=== PATIENT | female | born 1965 | race Caucasian/White ===

== ENCOUNTER 2017-01-17 15:15 | Emergency (ER) | payer OTHER ==
[~2017-01-17] VITALS: Ht 167.6 cm; Wt 67.0 kg
[2017-01-17] MEDS ORDERED: ONDANSETRON 2MG/ML, 2ML IVPush ONE ×2 (16:00→18:00)
[2017-01-17] MEDS ORDERED: SODIUM CHLORIDE FLUSH 10ML SYR IVF ONE (16:00)
[2017-01-17] MEDS ORDERED: SODIUM CHLORIDE 0.9% 1,000ML IV ONE (16:00)
[2017-01-17] MEDS ORDERED: KETOROLAC 30 MG/1 ML IVPush ONE (16:00)
[2017-01-17] MEDS ORDERED: MORPHINE SULFATE 4 MG/ML, 1ML IVPush PRN (16:00)
[2017-01-17] MEDS ORDERED: ONDANSETRON 2MG/ML, 2ML ONE ×2 (16:18→17:49)
[2017-01-17] MEDS ORDERED: MORPHINE SULFATE 4 MG/ML, 1ML ONE (16:18)
[2017-01-17] MEDS ORDERED: KETOROLAC 30 MG/1 ML ONE (16:18)
[2017-01-17] MEDS ORDERED: HYDROmorphone 2 MG/ML, 1ML ONE (16:34)
[2017-01-17 16:47] LABS: BLOOD UREA NITROGEN 15 mg/dL (7-18)
[2017-01-17] MEDS ORDERED: HYDROmorphone 1 MG/ML, 1ML IVPush ONE (17:00)
[2017-01-17] MEDS ORDERED: PROCHLORPERAZINE 5 MG/ML, 2ML IVPush ONE (18:30)
[2017-01-17] MEDS ORDERED: PROCHLORPERAZINE 5 MG/ML, 2ML ONE (18:36)
[2017-01-17 20:04] VITALS: BP 87/54
== END 2017-01-17 20:23 | disposition home or self-care (01) ==
LOC: ED 20:01
DX: R10.9 Unspecified abdominal pain (principal)
CPT/HCPCS: 36415; 74176; 80048; 81001; 82040; 85025; 87086; 96361; 96374; 96375; 96376; 99285; J0780; J1170; J1885; J2405; J7030

== ENCOUNTER → 2017-09-18 | Outpatient (CLI) | payer OTHER | END | disposition home or self-care (01) | LOC: CFH 10:03 | PROVIDERS: ATTEND Obstetrics & Gynecology | DX: Z12.31 Encounter for screening mammogram for malignant neoplasm of breast (principal) | CPT/HCPCS: 77067 ==

== ENCOUNTER → 2018-09-19 | Outpatient (CLI) | payer OTHER | END | disposition home or self-care (01) | LOC: CFH 10:08 | PROVIDERS: ATTEND Obstetrics & Gynecology | DX: Z12.31 Encounter for screening mammogram for malignant neoplasm of breast (principal) | CPT/HCPCS: 77063; 77067 ==

== ENCOUNTER → 2019-09-24 | Outpatient (CLI) | payer OTHER | END | disposition home or self-care (01) | LOC: CFH 09:18 | PROVIDERS: ATTEND Obstetrics & Gynecology | DX: Z12.31 Encounter for screening mammogram for malignant neoplasm of breast (principal); N64.89 Other specified disorders of breast | CPT/HCPCS: 77063; 77067 ==

== ENCOUNTER 2020-01-10 08:10 | Day surgery (SDC) | payer OTHER ==
[~2020-01-10] VITALS: Ht 167.6 cm; Wt 65.0 kg
[~2020-01-10 08:10] MED LIST: ACET-1600 PO; BIOT25005 PO; DICY10CA3 PO; EZET10TA70 PO; Estroven PO; GABA300C10 PO; LACT1CAP40 PO; MESA1.2T PO; MONT10TA6 PO; TIZA2TAB4 PO; TRAM50TA2 PO; TURM538C PO; [UNRECOGNIZED DRUG - CODE] PO
[2020-01-10] MEDS ORDERED: LACTATED RINGERS 1,000 ML IV SCH (08:39)
[2020-01-10] MEDS ORDERED: CHLORHEXIDINE 15 ML UDC MM STA (08:39)
[2020-01-10 08:41] VITALS: BP 121/88
[2020-01-10] MEDS ORDERED: MIDAZOLAM 1 MG/ML, 2ML ONE ×2 (09:55)
[2020-01-10] MEDS ORDERED: LIDOCAINE 1%, 20ML ONE (10:02)
[2020-01-10] MEDS ORDERED: KETOROLAC 30 MG/1 ML ONE ×2 (11:23)
[2020-01-10] MEDS ORDERED: OXYcodone 5 MG/5 ML ORAL.SOL UDC ONE (11:26)
[2020-01-10] MEDS ORDERED: OXYcodone 5 MG/5 ML ORAL.SOL UDC PO PRN (11:30)
[2020-01-10] MEDS ORDERED: HYDROcodone/APAP 7.5-325MG/15ML UDC PO PRN (11:30)
[2020-01-10] MEDS ORDERED: PROMETHAZINE 25 MG/ML, 1ML IVPush PRN (11:30)
[2020-01-10] MEDS ORDERED: ACETAMINOPHEN 325 MG TABLET PO PRN (11:30)
[2020-01-10] MEDS ORDERED: ONDANSETRON 2MG/ML, 2ML IVPush PRN (11:30)
[2020-01-10] MEDS ORDERED: KETOROLAC 30 MG/1 ML IVPush PRN (11:30)
[2020-01-10] MEDS ORDERED: hydrALAzine 20 MG/ML, 1ML IV PRN (11:30)
[2020-01-10] MEDS ORDERED: HYDROmorphone 1 MG/ML, 1ML INJ ONE ×2 (11:32→11:44)
[2020-01-10] MEDS: HYDROmorphone 1 MG/ML, 1ML INJ IVPush PRN ×4 (11:36→11:53)
[2020-01-10] MEDS ORDERED: PROMETHAZINE 25 MG/ML, 1ML ONE (11:57)
[2020-01-10] MEDS ORDERED: ENALAPRILAT 1.25 MG/ML, 2ML ONE (12:07)
[2020-01-10] MEDS ORDERED: DIAZEPAM 5 MG/ML, 2ML IVPush PRN (12:30)
[2020-01-10] MEDS ORDERED: DIPHENHYDRAMINE 50 MG/ML, 1ML ONE (13:36)
[2020-01-10] MEDS ORDERED: DIPHENHYDRAMINE 50 MG/ML, 1ML IVPush ONE (14:00)
== END 2020-01-10 14:45 | disposition home or self-care (01) ==
LOC: OUT 08:10
PROVIDERS: ATTEND Orthopaedic Surgery
DX: M20.21 Hallux rigidus, right foot (principal); Z11.59 Encounter for screening for other viral diseases; G57.61 Lesion of plantar nerve, right lower limb; M19.071 Primary osteoarthritis, right ankle and foot; M25.774 Osteophyte, right foot; K51.90 Ulcerative colitis, unspecified, without complications; Z79.899 Other long term (current) drug therapy; Z87.448 Personal history of other diseases of urinary system; Z88.8 Allergy status to other drugs, medicaments and biological substances; Z82.61 Family history of arthritis; Z82.49 Family history of ischemic heart disease and other diseases of the circulatory system
CPT/HCPCS: 28080; 28289; 88304; J1170; J1200; J1885; J2250; J2550; J3360; J7120; U0001

== ENCOUNTER → 2020-12-10 | Outpatient (CLI) | payer OTHER ==
[~2020-12-10] MED LIST changes: +TIZA-106 PO; -TIZA2TAB4 PO
== END | disposition home or self-care (01) ==
LOC: CFH 09:07
PROVIDERS: ATTEND Obstetrics & Gynecology
DX: Z12.31 Encounter for screening mammogram for malignant neoplasm of breast (principal)
CPT/HCPCS: 77063; 77067